=== PATIENT | female | born 1985 | race Caucasian/White ===

== ENCOUNTER 2017-01-20 17:22 | Emergency (ER) | payer SELFPAY ==
[~2017-01-20] VITALS: Ht 170.2 cm; Wt 69.0 kg
[2017-01-20 17:25] VITALS: Ht 170.2 cm; Wt 69.0 kg
[2017-01-20] MEDS ORDERED: PEN500 PO (17:38)
[2017-01-20] MEDS ORDERED: TYL500 PO (17:39)
--- NOTE | 2017-01-20 17:43 | ERD ---
ER Documentation Chief Complaint Date/Time DATE: 01/20/17 TIME: 17:[address] X 1 DAY HPI This is a 31-year-old female presents to the ER with a sore throat that started this morning. Patient states she woke up and noticed that she had red and white spots on her tonsils. 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 She denies any fevers or chills. Denies any difficulty in breathing or swallowing. ROS 12 point review of systems was done, all negative except per HPI. Medications Home Meds Active Scripts Acetaminophen* (Tylenol*) 500 Mg Tab, 1000 MG PO Q8H for 3 Days, TAB Prov:ALEXANDER DODSON C 01/20/17 Penicillin V Potassium* (Penicillin V K*) 500 Mg Tab, 500 MG PO TID for 10 Days , TAB Prov:WESTALEXANDER C 01/20/17 Physical Exam Vitals Vital Signs Date Time Temp Pulse Resp B/P Pulse Ox O2 Delivery O2 Flow Rate FiO2 01/20/17 17:25 98.4 94 17 106/61 96 Physical Exam GENERAL: The patient is well-developed, well-nourished, in no acute distress. NECK: Cervical spine is non tender with no step off. Supple, no nuchal rigidity HEENT: Atraumatic. Pupils equal, round and reactive to light. Extraocular muscles are grossly intact. Conjunctivae pink, no discharge. Bilateral tympanic membranes are clear with no evidence of erythema, effusion or dulling of the light reflex. The lateral tonsillar erythema with white exudates. No uvular deviation no kissing tonsils. RESPIRATORY: Clear to auscultation bilaterally. There are no rales, wheezes or rhonchi. HEART: Regular rate and rhythm. No murmurs, clicks, rubs or gallops. NEUROLOGIC: Alert and oriented. Procedures/MDM This is a 31-year-old female presents to the ER with a sore throat. Patient is afebrile and well-appearing. Patient does have strep throat that she does have wet x-ray and her tonsils and recent contact with someone who had strep throat. For her to control abscess, peritonsillar abscess is low. Patient not have any difficulty in breathing and is stable for outpatient follow-up. Patient be sent home with penicillin. She is to follow-up with her primary care doctor within 1- 2 days or return to ER sooner symptoms worsen. My medical decision making [place] with the patient she understands and agrees with plan. Departure Diagnosis: Primary Impression: Strep throat Condition: Stable Patient Instructions: Strep Throat Additional Instructions: Call your primary care doctor TOMORROW for an appointment during the next 1-2 days.See the doctor sooner or return here if your condition worsens before your appointment time. ALEXANDER DODSON January 20, 2017 17:43
== END 2017-01-20 17:41 | disposition home or self-care (01) ==
LOC: E/R 17:22
DX: J02.0 Streptococcal pharyngitis (principal)
CPT/HCPCS: 99283

== ENCOUNTER 2017-02-07 19:22 | Emergency (ER) | payer SELFPAY ==
[~2017-02-07] VITALS: Ht 162.6 cm; Wt 68.0 kg
[~2017-02-07 19:22] MED LIST: PEN500 PO; TYL500 PO
[2017-02-07 19:32] VITALS: Ht 162.6 cm; Wt 68.0 kg
--- NOTE | 2017-02-07 21:00 | ERD ---
ER Documentation Chief Complaint Date/Time DATE: 02/07/17 TIME: 20:55 Chief Complaint JUST FINISHED TREATMENT FOR STREP THROAT, BUT PAIN WITH REDNESS BACK HPI She is a 31-year-old female who presents to the emergency department for concerns of throat pain. Patient was seen here on 01/20/17 and diagnosed with strep pharyngitis. Patient reports taking penicillin VK as prescribed for 10 days. Patient states today she woke up with redness and white spots of the back of her throat. Patient denies any fevers, chills, nausea, vomiting, ear pain, cough, abdominal pain or loss consciousness. Patient denies any trismus, drooling or hyperextension of her neck. Patient does report numerous strep throat infections in the past and states that she has taken amoxicillin in the past. Patient denies any recent travel. No sick contacts. ROS All systems reviewed and are negative except as per history of present illness. Medications Home Meds Active Scripts Ibuprofen* (Motrin*) 600 Mg Tab, 600 MG PO Q6, #30 TAB Prov:JUANA POOL PA-C 02/07/17 Clindamycin Hcl* (Clindamycin Hcl*) 300 Mg Capsule, 300 MG PO TID for 10 Days, CAP Prov:JUANA POOL PA-C 02/07/17 Acetaminophen* (Tylenol*) 500 Mg Tab, 1000 MG PO Q8H for 3 Days, TAB Prov:ALEXANDER DODSON 01/20/17 Penicillin V Potassium* (Penicillin V K*) 500 Mg Tab, 500 MG PO TID for 10 Days , TAB Prov:ALEXANDER DODSON 01/20/17 PMhx/Soc Medical and Surgical Hx: pt denies Medical Hx, pt denies Surgical Hx Hx Alcohol Use: Yes (occassional) Hx Substance Use: No Hx Tobacco Use: No Smoking Status: Never smoker FmHx Family History: No diabetes Physical Exam Vitals Vital Signs Date Time Temp Pulse Resp B/P Pulse Ox O2 Delivery O2 Flow Rate FiO2 02/07/17 19:32 97.0 77 16 121/55 97 Physical Exam GENERAL: Well-developed, well-nourished female. Appears in no acute distress. HEAD: Normocephalic, atraumatic. No deformities or ecchymosis. EYE: Pupils equal, round, and reactive to light. EOMs intact. No conjunctival erythema. No eye discharge. ENT: External ear without any masses or tenderness. TM visualized bilaterally, non-erythematous, non-bulging. Nasal mucosa pink with no discharge. Oropharynx is erythematous with bilateral tonsillar swelling and exudates noted. No uvula deviation. No kissing tonsils. Nontender palpation of bilateral mastoid processes. No trismus. No drooling. NECK: Supple. No meningismus. Normal ROM of the neck. No hyperextension of the neck noted. LUNG: Clear to auscultation bilaterally. No rhonchi, wheezing, rales or coarse breath sounds. HEART: Regular rate and rhythm. No murmurs, rubs or gallops. BACK: No midline tenderness. EXTREMITIES: Equal pulses bilaterally. No peripheral clubbing, cyanosis or edema. No unilateral leg swelling. NEUROLOGIC: Alert and oriented to person, place and time. Moving all four extremities. 5/5 strength in all extremities. Normal speech. Steady gait. SKIN: Normal color. Warm and dry. No rashes or lesions. Results 24 hrs Laboratory Tests Test 02/07/17 20:20 Monoscreen Negative Procedures/MDM MEDICAL DECISION MAKING: This is a 31-year-old female presents with throat pain, tonsillar erythema and bilateral exudates. Patient was recently treated for strep pharyngitis and reports taking a full course of penicillin VK 10 days. Patient does report history of strep pharyngitis in the past. Vital signs were reviewed. Patient was afebrile. Patient was not hypoxic. The patient does not have trismus, muffled voice, uvula deviation, unilateral tonsillar swelling, or drooling. No signs of neck swelling or hyperextension of the neck noted. Monospot was obtained. Monospot negative. Given that patient has a history of recurrent throat infections, throat culture was obtained. Results pending. At this time , I will prescribe the patient a course of clindamycin due to possible resistance to penicillin. Given these findings, the patient's presentation is most consistent with resistant strep pharyngitis. I have a much lower clinical suspicion for mononucleosis, epiglottitis, peritonsillar abscess, retropharyngeal abscess, Eleno's angina, dental abscess, otitis media, mastoiditis, meningitis. PRESCRIPTIONS: Ibuprofen, clindamycin DISCHARGE: At this time, patient is stable for discharge and outpatient management. Supportive therapies such as OTC throat lozenges and warm salt water gurgles were discussed. Advised to follow-up with an ENT specialist given recurrent pharyngitis infections over the last year. She may benefit from elective tonsillectomy. I have instructed the patient to follow-up with his/her primary care physician in 1-2 days. I have discussed with the patient the possibility of needing to see a specialist for further workup and imaging studies if symptoms persist. I have instructed the patient to promptly return to the ER for any new or worsening symptoms including increased pain, fever, nausea, vomiting, weakness or LOC. The patient and/or family expressed understanding of and agreement with this plan. All questions were answered. Home care instructions were provided. Departure Diagnosis: Primary Impression: Strep pharyngitis Condition: Stable Patient Instructions: Strep Throat Referrals: JEREMIAH BRADLEY MD, STEPHEN H MD EUBANKS, HAYWARD L. M.D. LANDMAN, MICHAEL D MD Additional Instructions: Call your primary care doctor TOMORROW for an appointment during the next 1-2 days.See the doctor sooner or return here if your condition worsens before your appointment time. Follow up with ENT specialist for recurrent pharyngitis. See referral list. JUANA POOL PA-C Feb 07, 2017 21:00
[2017-02-07] MEDS ORDERED: CLIN-73 PO (21:15)
[2017-02-07] MEDS ORDERED: IBUP-1542 PO (21:15)
== END 2017-02-07 21:33 | disposition home or self-care (01) ==
LOC: FTE 19:22
DX: J02.0 Streptococcal pharyngitis (principal)
CPT/HCPCS: 86308; 87070; 99283